=== PATIENT | female | born 1970 | race Caucasian/White ===

== ENCOUNTER 2016-05-07 10:30 | Emergency (ER) | payer OTHER ==
[~2016-05-07] VITALS: Ht 170.1 cm; Wt 73.5 kg
[~2016-05-07 10:30] MED LIST: ASPIR-LOW81 MG PO; ATENOLOL50 MG; AZITHROMYCIN500 M2 PO; Fioricet 325 MG1 TAB PO; INSULIN HUMA100 U/ML IJ; JANUVIA100 MG; JANUVIA25 MG PO; LANTUS100 U/ML SC; LISINOPRIL5 MG PO; MACROBID100 M1 PO; NAPROSYN500 MG PO; NEURONTIN300 MG PO; VIBRAMYCIN100 MG PO; VICODIN 5/500 505 MG PO; ZESTRIL,PRINIVI40 MG PO; ZOFRAN ODT4 MG SL
[2016-05-07] MEDS ORDERED: LANTUS100 U/ML SQ (11:01)
== END 2016-05-07 13:09 | disposition home or self-care (01) ==
LOC: ED 10:30
DX: R51 Headache (principal); R03.0 Elevated blood-pressure reading, without diagnosis of hypertension; F17.200 Nicotine dependence, unspecified, uncomplicated; Z79.4 Long term (current) use of insulin; Z88.6 Allergy status to analgesic agent; Z90.49 Acquired absence of other specified parts of digestive tract

== ENCOUNTER → 2016-05-12 | Outpatient (CLI) | payer OTHER ==
[~2016-05-12] MED LIST changes: +LANTUS100 U/ML SQ
== END | disposition home or self-care (01) ==
LOC: MRI 13:38
DX: G44.52 New daily persistent headache (NDPH) (principal); G44.89 Other headache syndrome

== ENCOUNTER → 2016-05-14 | Outpatient (CLI) | payer OTHER | END | disposition home or self-care (01) | LOC: MRI 03:03 | DX: G44.52 New daily persistent headache (NDPH) (principal) ==

== ENCOUNTER → 2016-05-16 | Outpatient (CLI) | payer OTHER | END | disposition home or self-care (01) | LOC: MRI 02:17 | DX: G44.52 New daily persistent headache (NDPH) (principal) ==

== ENCOUNTER → 2018-04-26 | Outpatient (CLI) | payer BC ==
[~2018-04-26] MED LIST changes: +CLINDAMYCIN HC300 MG PO
[2018-04-26 09:34] LABS: CHLORIDE 105 mmol/L (98-107); POTASSIUM 4.1 mmol/L (3.5-5.1); SODIUM 140 mmol/L (136-145)
[2018-04-26 09:49] LABS: ALBUMIN 3.7 gm/dl (3.1-4.5); ALKALINE PHOSPHATASE 100 U/L (45-117); BUN 21 mg/dl (7-24); CHOLESTEROL 201 mg/dL (<200); CREATININE 0.59 mg/dL (0.55-1.02); FREE T4 0.88 ng/dl (0.76-1.46); HDL CHOLESTEROL 77 mg/dl (40-60); LDL CHOLESTEROL 112 mg/dL (9-159); SGOT/AST 12 IU/L (3-35); SGPT/ALT 23 U/L (12-78); TOTAL PROTEIN 7.3 gm/dL (6.4-8.2); TRIGLYCERIDES 61 mg/dl (<150); VLDL CHOLESTEROL 12 mg/dL (6-40)
[2018-04-27 13:08] LABS: CREATININE,URINE 103.1 mg/dL (Not Estab.); MICRO ALBUMIN/CRE RATIO 24.7 (0.0-30.0)
== END | disposition home or self-care (01) ==
PROVIDERS: Physician Assistant
DX: E10.65 Type 1 diabetes mellitus with hyperglycemia (principal)

== ENCOUNTER 2019-01-24 21:24 | Emergency (ER) | payer BC ==
[~2019-01-24] VITALS: Ht 170.1 cm; Wt 72.6 kg
[2019-01-24] MEDS ORDERED: ANAPROX DS550 MG PO (22:41)
[2019-01-24] MEDS ORDERED: VIBRAMYCIN100 MG PO (22:41)
== END 2019-01-24 23:20 | disposition home or self-care (01) ==
LOC: ED 21:24
DX: L72.3 Sebaceous cyst (principal); L02.811 Cutaneous abscess of head [any part, except face]; Z86.14 Personal history of Methicillin resistant Staphylococcus aureus infection; Z88.6 Allergy status to analgesic agent; Z79.2 Long term (current) use of antibiotics; Z79.4 Long term (current) use of insulin; Z90.710 Acquired absence of both cervix and uterus

== ENCOUNTER 2021-03-05 19:51 | Emergency (ER) | payer BC ==
[~2021-03-05] VITALS: Ht 170.1 cm; Wt 74.8 kg
[~2021-03-05 19:51] MED LIST changes: +ANAPROX DS550 MG PO
[2021-03-05 21:25] LABS: BASO % 0.5 % (0.0-1.0); EOS # 0.2 10*3/uL (0.0-0.4); EOS % 2.9 % (1.0-4.0); LYMPH % 34.4 % (27.0-41.0); MEAN CELL VOLUME 96.2 fl (81.0-99.0); MEAN CORPUSCULAR HGB CONC 33.3 g/dl (33.0-37.0); MEAN PLATELET VOLUME 9.8 fl (9.6-12.3); MONO # 0.5 10*3/uL (0.1-1.0); MONO % 8.5 % (3.0-9.0); NEUT # 3.2 10*3/uL (2.3-7.9); NEUT % 53.5 % (47.0-73.0); PLATELET COUNT AUTOMATED 244 10*3/uL (130-400); RED BLOOD COUNT 4.47 10*6/uL (4.10-5.10); RED CELL DISTRI WIDTH 12.5 % (0-14.5); WHITE BLOOD COUNT 5.9 10*3/uL (4.8-10.8)
[2021-03-05 21:26] LABS: BILIRUBIN Negative (Negative); BLOOD Negative (Negative); CLARITY Clear (Clear); COLOR Yellow (Yellow); GLUCOSE 3+ (Negative); KETONE Trace (Negative); LEUKO ESTERASE Negative (Negative); NITRITE Positive (Negative); SPECIFIC GRAVITY >= 1.030 (1.001-1.030)
[2021-03-05 21:34] LABS: BACTERIA 4+; RBC 0-2 rbc/hpf (0-2)
[2021-03-05 21:42] LABS: ALBUMIN 3.7 gm/dl (3.1-4.5); ALKALINE PHOSPHATASE 103 U/L (45-117); BUN 16 mg/dl (7-24); CHLORIDE 105 mmol/L (98-107); CREATININE 0.81 mg/dL (0.55-1.02); LIPASE 159 U/L (73-393); SGOT/AST 16 IU/L (3-35); SGPT/ALT 24 U/L (12-78); SODIUM 138 mmol/L (136-145); TOTAL PROTEIN 7.2 gm/dL (6.4-8.2)
[2021-03-05] MEDS ORDERED: CEFUROXIME AXE500 MG PO (23:13)
[2021-03-05] MEDS ORDERED: PYRIDIUM200 M1 PO (23:13)
== END 2021-03-05 23:33 | disposition home or self-care (01) ==
LOC: ED 19:51
PROVIDERS: Physician Assistant
DX: N39.0 Urinary tract infection, site not specified (principal); Z88.6 Allergy status to analgesic agent

== ENCOUNTER → 2022-02-12 | Outpatient (CLI) | payer BC ==
[~2022-02-12] MED LIST changes: +CEFUROXIME AXE500 MG PO; +PYRIDIUM200 M1 PO
== END | disposition home or self-care (01) ==
LOC: MAMMO 12:27
PROVIDERS: ATTEND Physician Assistant
DX: N63.21 Unspecified lump in the left breast, upper outer quadrant (principal); R92.2 Inconclusive mammogram; R92.1 Mammographic calcification found on diagnostic imaging of breast

== ENCOUNTER → 2022-02-13 | Outpatient (CLI) | payer BC | END | disposition home or self-care (01) | LOC: EDSTATUS 09:00 → RAD 09:00 | PROVIDERS: ATTEND Physician Assistant | DX: Z12.31 Encounter for screening mammogram for malignant neoplasm of breast (principal); N63.20 Unspecified lump in the left breast, unspecified quadrant; E11.9 Type 2 diabetes mellitus without complications; F17.210 Nicotine dependence, cigarettes, uncomplicated; Z88.8 Allergy status to other drugs, medicaments and biological substances; Z79.4 Long term (current) use of insulin; Z79.899 Other long term (current) drug therapy ==

== ENCOUNTER 2024-07-20 16:42 | Emergency (ER) | payer BC ==
[~2024-07-20] VITALS: Ht 170.1 cm; Wt 93.9 kg
[2024-07-20] MEDS ORDERED: VIBRAMYCIN100 MG PO (17:21)
== END 2024-07-20 17:23 | disposition home or self-care (01) ==
LOC: ED 16:42
DX: L03.311 Cellulitis of abdominal wall (principal); E11.9 Type 2 diabetes mellitus without complications; Z79.4 Long term (current) use of insulin; Z79.899 Other long term (current) drug therapy; Z88.1 Allergy status to other antibiotic agents; Z88.6 Allergy status to analgesic agent; Z90.710 Acquired absence of both cervix and uterus; Z98.51 Tubal ligation status; Z98.890 Other specified postprocedural states